=== PATIENT | female | born 1960 | race Caucasian/White ===

== ENCOUNTER 2021-11-21 11:30 | Emergency (ER) | payer MEDICAID ==
[~2021-11-21] VITALS: Ht 154.9 cm; Wt 100.0 kg
[2021-11-21] MEDS ORDERED: METF-873 PO (12:10)
[2021-11-21] MEDS ORDERED: ASPI-1497 PO (12:10)
[2021-11-21] MEDS ORDERED: IBUPROFEN 600MG TABLET PO ONE (15:00)
[2021-11-21 15:20] VITALS: BP 158/104
[2021-11-21] MEDS ORDERED: NAPR-681 PO (15:26)
== END 2021-11-21 16:17 | disposition home or self-care (01) ==
LOC: ER 11:30
DX: S90.31XA Contusion of right foot, initial encounter (principal); S63.501A Unspecified sprain of right wrist, initial encounter; W01.0XXA Fall on same level from slipping, tripping and stumbling without subsequent striking against object, initial encounter; Y93.89 Activity, other specified; Y92.89 Other specified places as the place of occurrence of the external cause; Y99.8 Other external cause status
CPT/HCPCS: 29125; 73090; 73110; 73630; 82962; 99284